=== PATIENT | male | born 1940 | race Caucasian/White ===

== ENCOUNTER → 2018-05-16 | Outpatient (CLI) | payer MEDICARE, MEDICAID | END | disposition home or self-care (01) | LOC: CFH 08:02 | PROVIDERS: ATTEND Internal Medicine Cardiovascular Disease | DX: I35.1 Nonrheumatic aortic (valve) insufficiency (principal); I35.0 Nonrheumatic aortic (valve) stenosis; I10 Essential (primary) hypertension; E78.5 Hyperlipidemia, unspecified; Z87.891 Personal history of nicotine dependence | CPT/HCPCS: 93306 ==

== ENCOUNTER 2018-05-27 07:46 | Day surgery (SDC) | payer MEDICARE, MEDICAID ==
[~2018-05-27] VITALS: Ht 175.3 cm; Wt 93.2 kg
[2018-05-27] MEDS ORDERED: SODIUM CHLORIDE 0.9% 1,000 ML IV ONE (08:18)
[2018-05-27 08:25] VITALS: BP 138/72
[2018-05-27] MEDS ORDERED: ASPIRIN 325 MG TABLET EC PO ONE (08:30)
[2018-05-27] MEDS ORDERED: ASPI-496 PO (08:35)
[2018-05-27] MEDS ORDERED: ATOR40TA PO (08:35)
[2018-05-27] MEDS ORDERED: FINA5TAB4 PO (08:35)
[2018-05-27] MEDS ORDERED: MULT-6 PO (08:35)
[2018-05-27] MEDS ORDERED: LOSA25TA6 PO (08:35)
[2018-05-27] MEDS ORDERED: AMLO5TAB7 PO (08:35)
[2018-05-27] MEDS ORDERED: CALC-55 PO (08:35)
[2018-05-27] MEDS ORDERED: GARL1TAB2 PO (08:35)
[2018-05-27] MEDS ORDERED: CRAN500C7 PO (08:40)
[2018-05-27] MEDS ORDERED: SAW160CA4 PO (08:40)
[2018-05-27] MEDS ORDERED: OMEG1CAP6 PO (08:40)
[2018-05-27] MEDS ORDERED: POTA99TA24 PO (08:40)
[2018-05-27] MEDS ORDERED: ASPIRIN 325 MG TABLET EC ONE (08:43)
[2018-05-27] MEDS ORDERED: NITROGLYCERIN 5 MG/ML, 10ML ONE (09:54)
[2018-05-27] MEDS ORDERED: BIVALIRUDIN 250 MG ONE (09:54)
[2018-05-27] MEDS ORDERED: MIDAZOLAM 1 MG/ML, 5ML ONE (09:54)
[2018-05-27] MEDS ORDERED: FENTANYL PF 100 MCG/2ML ONE (09:54)
[2018-05-27] MEDS ORDERED: HEPARIN 1,000 UNITS/ML, 10ML ONE (09:54)
[2018-05-27] MEDS ORDERED: TICAGRELOR 90 MG TABLET ONE (09:54)
[2018-05-27] MEDS ORDERED: VERAPAMIL 2.5 MG/ML, 2ML ONE (09:54)
[2018-05-27] MEDS ORDERED: LIDOCAINE/PF 1%, 30ML ONE (09:55)
[2018-05-27] MEDS ORDERED: SODIUM CHLORIDE 0.9% 1,000 ML IV SCH (11:04)
== END 2018-05-27 13:36 | disposition home or self-care (01) ==
LOC: CACL 07:46
PROVIDERS: ATTEND Internal Medicine Cardiovascular Disease
DX: I35.0 Nonrheumatic aortic (valve) stenosis (principal); I20.9 Angina pectoris, unspecified; F17.210 Nicotine dependence, cigarettes, uncomplicated; I12.9 Hypertensive chronic kidney disease with stage 1 through stage 4 chronic kidney disease, or unspecified chronic kidney disease; E78.00 Pure hypercholesterolemia, unspecified; N18.2 Chronic kidney disease, stage 2 (mild); Z79.82 Long term (current) use of aspirin; Z79.899 Other long term (current) drug therapy
CPT/HCPCS: 93308; 93321; 93325; 93456; 99156; C1769; C1894; J1644; J2250; J3010; J3490; Q9967; 93460; J0583

== ENCOUNTER → 2018-06-01 | Outpatient (CLI) | payer MEDICARE, MEDICAID ==
[~2018-06-01] MED LIST: AMLO5TAB7 PO; ASPI-496 PO; ATOR40TA PO; CALC-55 PO; CRAN500C7 PO; FINA5TAB4 PO; GARL1TAB2 PO; LOSA25TA6 PO; MULT-6 PO; OMEG1CAP6 PO; POTA99TA24 PO; SAW160CA4 PO
== END | disposition home or self-care (01) ==
LOC: CVU 15:24
PROVIDERS: ATTEND Internal Medicine Cardiovascular Disease
DX: I65.23 Occlusion and stenosis of bilateral carotid arteries (principal); I35.0 Nonrheumatic aortic (valve) stenosis; I10 Essential (primary) hypertension; E78.5 Hyperlipidemia, unspecified; F17.200 Nicotine dependence, unspecified, uncomplicated
CPT/HCPCS: 93880

== ENCOUNTER 2018-06-28 09:04 | Inpatient (IN) | payer MEDICARE, MEDICAID ==
[~2018-06-28] VITALS: Ht 175.3 cm; Wt 91.2 kg
[~2018-06-28 09:04] MED LIST changes: +AMLO-150 PO; -AMLO5TAB7 PO; +CHLORHEXIDINE 15 ML UDC ONE; +LOSA25TA25 PO; -LOSA25TA6 PO
[2018-06-28] MEDS ORDERED: SODIUM CHLORIDE 0.9% 1,000 ML IV ONE (09:23)
[2018-06-28] MEDS ORDERED: CHLORHEXIDINE 15 ML UDC MM PRN (09:30)
[2018-06-28] MEDS ORDERED: ONDANSETRON 2MG/ML, 2ML IVPush PRN ×2 (09:30→13:30)
[2018-06-28 10:04] LABS: BASOPHILS # (AUTO) 0.03 x10^3/uL (0-0.1); BASOPHILS % (AUTO) 0 % (0-1); EOSINOPHILS # (AUTO) 0.34 x10^3/uL (0-0.4); EOSINOPHILS % (AUTO) 4 % (1-7); LYMPHOCYTES # (AUTO) 2.09 x10^3/uL (1-3.4); LYMPHOCYTES % (AUTO) 22 % (22-44); MD NO; MEAN CORPUSCULAR HEMOGLOBIN 31.4 pg (27.5-34.5); MEAN CORPUSCULAR VOLUME 92.3 fL (81-97); MEAN PLATELET VOLUME 10.7 fL (7.4-10.4); MONOCYTES # (AUTO) 0.83 x10^3/uL (0.2-0.8); MONOCYTES % (AUTO) 9 % (2-9); NEUTROPHILS # (AUTO) 6.13 x10^3/uL (1.8-6.8); NEUTROPHILS % (AUTO) 65 % (42-75); PLATELET COUNT 183 x10^3/uL (130-400); RED BLOOD COUNT 5.14 x10^6/uL (4.38-5.82); RED CELL DISTRIBUTION WIDTH 13.2 % (9.4-14.8)
[2018-06-28 10:10] LABS: INTERNATIONAL NORMALIZED RATIO 1.01 (0.93-1.1); PROTHROMBIN TIME 10.7 Seconds (9.6-11.5)
[2018-06-28 10:12] LABS: ALBUMIN 3.8 g/dL (3.4-5.0); ANION GAP 7 mmol/L (5-15); CALCIUM 8.5 mg/dL (8.5-10.1); CHLORIDE 110 mmol/L (98-107)
[2018-06-28 10:17] LABS: ALANINE AMINOTRANSFERASE 24 U/L (12-78); ALKALINE PHOSPHATASE 91 U/L (45-117); BILIRUBIN,TOTAL 0.7 mg/dL (0.2-1.0); CREATININE 1.21 mg/dL (0.7-1.3); TOTAL PROTEIN 7.3 g/dL (6.4-8.2)
[2018-06-28] MEDS ORDERED: FENTANYL PF 250 MCG/5ML ONE (11:57)
[2018-06-28] MEDS ORDERED: PROPOFOL 10 MG/ML, 20ML ONE ×3 (12:09→12:45)
[2018-06-28] MEDS ORDERED: SUCCINYLCHOLINE 20 MG/ML, 10ML ONE (12:09)
[2018-06-28] MEDS ORDERED: ROCURONIUM 10 MG/ML,10ML ONE (12:09)
[2018-06-28] MEDS ORDERED: PROTAMINE SULFATE 10 MG/ML, 5ML ONE (12:09)
[2018-06-28] MEDS ORDERED: CEFAZOLIN 1,000 MG ONE (12:09)
[2018-06-28] MEDS ORDERED: HEPARIN 1,000 UNITS/ML, 10ML ONE (12:42)
[2018-06-28] MEDS ORDERED: FENTANYL PF 100 MCG/2ML ONE (13:12)
[2018-06-28] MEDS ORDERED: ACETAMINOPHEN 325 MG TABLET PO PRN (13:30)
[2018-06-28] MEDS ORDERED: hydrALAzine 20 MG/ML, 1ML IVPush PRN (13:30)
[2018-06-28] MEDS ORDERED: LABETALOL 20 MG/4 ML IVPush PRN (13:30)
[2018-06-28] MEDS ORDERED: HYDROcodone/APAP 5/325 TABLET PO PRN (13:30)
[2018-06-28] MEDS ORDERED: NICOTINE 14MG/24 HR PATCH.TD24 ONE (15:41)
[2018-06-28] MEDS ORDERED: NICOTINE 14MG/24 HR PATCH.TD24 TD ONE (16:00)
[2018-06-28 20:04] VITALS: BP 135/73
[2018-06-28] MEDS ORDERED: ATORVASTATIN 40 MG TABLET PO SCH (21:00)
[2018-06-28] MEDS ORDERED: CLOPIDOGREL 300 MG TABLET PO ONE (21:00)
[2018-06-29 02:11] VITALS: BP 148/67
[2018-06-29 05:52] LABS: ANION GAP 8 mmol/L (5-15); BASOPHILS # (AUTO) 0.04 x10^3/uL (0-0.1); BASOPHILS % (AUTO) 0 % (0-1); CALCIUM 8.5 mg/dL (8.5-10.1); CHLORIDE 106 mmol/L (98-107); CREATININE 1.19 mg/dL (0.7-1.3); EOSINOPHILS # (AUTO) 0.14 x10^3/uL (0-0.4); EOSINOPHILS % (AUTO) 1 % (1-7); LYMPHOCYTES # (AUTO) 1.39 x10^3/uL (1-3.4); LYMPHOCYTES % (AUTO) 13 % (22-44); MD NO; MEAN CORPUSCULAR HEMOGLOBIN 31.3 pg (27.5-34.5); MEAN CORPUSCULAR HGB CONC 33.7 g/dL (33.2-36.2); MEAN CORPUSCULAR VOLUME 92.8 fL (81-97); MEAN PLATELET VOLUME 10.6 fL (7.4-10.4); MONOCYTES # (AUTO) 1.04 x10^3/uL (0.2-0.8); MONOCYTES % (AUTO) 9 % (2-9); NEUTROPHILS % (AUTO) 77 % (42-75); PLATELET COUNT 130 x10^3/uL (130-400); RED BLOOD COUNT 4.45 x10^6/uL (4.38-5.82); RED CELL DISTRIBUTION WIDTH 13.2 % (9.4-14.8)
[2018-06-29 08:00] VITALS: BP 126/86
[2018-06-29] MEDS ORDERED: TEMPLATE NON-FORMULARY MED. (Aspirin** (Aspir 81**) 81 MG) PO SCH (09:00)
[2018-06-29] MEDS ORDERED: ASPIRIN 81 MG TABLET EC PO SCH (09:00)
[2018-06-29] MEDS ORDERED: AMLODIPINE 2.5 MG TABLET PO SCH (09:00)
[2018-06-29] MEDS ORDERED: CLOPIDOGREL 75 MG TABLET PO SCH (09:00)
[2018-06-29] MEDS ORDERED: FINASTERIDE 5 MG TABLET PO SCH (09:00)
[2018-06-29] MEDS ORDERED: LOSARTAN 50MG TABLET PO SCH (09:00)
[2018-06-29] MEDS ORDERED: CLOP75TA PO (09:43)
[2018-06-29 13:59] VITALS: BP 113/70
== END 2018-06-29 15:52 | disposition home or self-care (01) | DRG 266 ==
LOC: ORIP 09:04 → CCU 13:25 → 5SO 19:27
PROVIDERS: ADMIT Internal Medicine Cardiovascular Disease; ATTEND Internal Medicine Cardiovascular Disease
PROC: B246ZZ4 Ultrasonography of Right and Left Heart, Transesophageal (ICD-10-PCS; 2018-06-28)
PROC: 03HY32Z Insertion of Monitoring Device into Upper Artery, Percutaneous Approach (ICD-10-PCS; 2018-06-28)
PROC: 4A133B1 Monitoring of Arterial Pressure, Peripheral, Percutaneous Approach (ICD-10-PCS; 2018-06-28)
PROC: 4A133J1 Monitoring of Arterial Pulse, Peripheral, Percutaneous Approach (ICD-10-PCS; 2018-06-28)
PROC: 02RF38Z Replacement of Aortic Valve with Zooplastic Tissue, Percutaneous Approach (ICD-10-PCS; principal; 2018-06-28 11:30)
DX: I35.0 Nonrheumatic aortic (valve) stenosis (principal); Z00.6 Encounter for examination for normal comparison and control in clinical research program; I50.33 Acute on chronic diastolic (congestive) heart failure; I13.0 Hypertensive heart and chronic kidney disease with heart failure and stage 1 through stage 4 chronic kidney disease, or unspecified chronic kidney disease; E78.5 Hyperlipidemia, unspecified; I12.9 Hypertensive chronic kidney disease with stage 1 through stage 4 chronic kidney disease, or unspecified chronic kidney disease; N18.3 Chronic kidney disease, stage 3 (moderate); F17.200 Nicotine dependence, unspecified, uncomplicated; I44.7 Left bundle-branch block, unspecified; J44.9 Chronic obstructive pulmonary disease, unspecified; I25.10 Atherosclerotic heart disease of native coronary artery without angina pectoris; Z23 Encounter for immunization
CPT/HCPCS: 33361; 36415; 80048; 80053; 83880; 85025; 85347; 85610; 85730; 86850; 86900; 86923; 87081; 90656; 93005; 93308; 93312; 93321; 93325; 93355; C1760; C1769; C1894; G0378; J0690; J1644; J2704; J2720; J3010; J0330; Q9967

== ENCOUNTER → 2018-07-26 | Outpatient (CLI) | payer MEDICARE, MEDICAID ==
[~2018-07-26] MED LIST changes: -CHLORHEXIDINE 15 ML UDC ONE; +CLOP75TA PO
== END | disposition home or self-care (01) ==
LOC: CVU 08:10
PROVIDERS: ATTEND Internal Medicine Cardiovascular Disease
DX: I35.0 Nonrheumatic aortic (valve) stenosis (principal); I11.9 Hypertensive heart disease without heart failure; F17.200 Nicotine dependence, unspecified, uncomplicated; E78.5 Hyperlipidemia, unspecified
CPT/HCPCS: 93306

== ENCOUNTER → 2019-05-29 | Outpatient (CLI) | payer MEDICARE, MEDICAID | END | disposition home or self-care (01) | LOC: CFH 12:35 | PROVIDERS: ATTEND Internal Medicine Cardiovascular Disease | DX: T82.03XA Leakage of heart valve prosthesis, initial encounter (principal); I34.0 Nonrheumatic mitral (valve) insufficiency | CPT/HCPCS: 93306 ==

== ENCOUNTER → 2020-05-27 | Outpatient (CLI) | payer MEDICARE, MEDICAID | END | disposition home or self-care (01) | LOC: CFH 13:42 | PROVIDERS: ATTEND Internal Medicine Cardiovascular Disease | DX: I36.1 Nonrheumatic tricuspid (valve) insufficiency (principal); I10 Essential (primary) hypertension; Z95.2 Presence of prosthetic heart valve | CPT/HCPCS: 93306 ==